=== PATIENT | male | born 1995 | race Caucasian/White ===

== ENCOUNTER 2017-09-13 16:17 | Emergency (ER) | payer OTHER ==
[~2017-09-13] VITALS: Ht 182.9 cm; Wt 118.3 kg
[~2017-09-13 16:17] MED LIST: SERT50TA PO
[2017-09-13] MEDS ORDERED: SODIUM CHLORIDE FLUSH 10ML SYR IVF ONE (17:00)
[2017-09-13] MEDS ORDERED: FAMOTIDINE 20 MG/2 ML IVP ONE (17:00)
[2017-09-13] MEDS ORDERED: ONDANSETRON 2MG/ML, 2ML IVPush ONE (17:00)
[2017-09-13 17:26] LABS: HEMATOCRIT 45.5 % (39.2-51.8); HEMOGLOBIN 15.5 g/dL (13.7-18.0); WHITE BLOOD COUNT 11.6 x10^3/uL (3.4-10)
[2017-09-13] MEDS: ONDANSETRON ODT 4 MG PO ONE ×2 (17:30→19:25)
[2017-09-13 17:35] LABS: ASPARTATE AMINO TRANSFERASE 20 U/L (15-37); BLOOD UREA NITROGEN 9 mg/dL (7-18)
[2017-09-13 19:18] VITALS: BP 124/80
[2017-09-13] MEDS ORDERED: ONDANSETRON ODT 4 MG ONE (19:22)
== END 2017-09-13 21:40 | disposition home or self-care (01) ==
LOC: ED 19:51
DX: K85.90 Acute pancreatitis without necrosis or infection, unspecified (principal); E86.0 Dehydration
CPT/HCPCS: 36415; 76700; 80053; 81001; 83690; 85025; 87086; 99285; Q0162